=== PATIENT | male | born 1980 | race Caucasian/White ===

== ENCOUNTER 2019-07-07 07:11 | Day surgery (SDC) | payer OTHER ==
[~2019-07-07] VITALS: Ht 182.9 cm; Wt 105.2 kg
[~2019-07-07 07:11] MED LIST: LIDOCAINE 2% W/EPIN INJ 20ML **PRES FREE As Ordered ONE; LIDOCAINE 3.5 % 1ML OPHTH TOPICAL GEL OU ONE; TOBRADEX OPHTH OINT 3.5 GM As Ordered ONE
[2019-07-07] MEDS ORDERED: fentaNYL 100 MCG/2 ML INJECTION (J3010) As Ordered ONE (08:34)
[2019-07-07] MEDS ORDERED: ONDANSETRON 4MG/2ML VIAL (J2405) As Ordered ONE (08:34)
[2019-07-07] MEDS ORDERED: dexameTHASONE 4 MG/ML 1ML VIAL (J1100) As Ordered ONE (08:34)
[2019-07-07] MEDS ORDERED: propofoL 200 MG/20 ML VIAL As Ordered ONE (08:34)
[2019-07-07] MEDS ORDERED: LIDOCAINE 2% INJ 100 MG/5 ML SDV (FOR ANES.) As Ordered ONE (08:34)
[2019-07-07] MEDS ORDERED: MIDAZOLAM INJ 2 MG/2 ML VIAL (J2250) As Ordered ONE (08:35)
[2019-07-07] MEDS ORDERED: POVIDONE-IODINE 5% OPHTH PREP SOL 30ML As Ordered ONE (09:15)
[2019-07-07 10:00] VITALS: BP 143/66
--- NOTE | 2019-07-07 21:44 | RO ---
DATE OF PROCEDURE: 07/07/2019 PREPROCEDURE DIAGNOSIS: Nasal pterygium left eye. POSTPROCEDURE DIAGNOSIS: Nasal pterygium left eye. PROCEDURE: Excision of pterygium with amniotic membrane graft to the left eye. SURGEON: Qian Santos MD CUSTOMER PROGRAM SPECIALIST: ANESTHESIA: Topical sedation. DESCRIPTION OF PROCEDURE: The patient was prepped and draped in the usual fashion. Lid speculum was placed between the lids. The area was identified. 2% lidocaine with epinephrine was injected subconjunctivally in the area of pterygium. The pterygium was excised and reflected back up onto the limbus and then with the forceps grasped and a blade, removed from the cornea. The cornea was polished with the blade. Any bleeding was then controlled with [place] cautery. An amniotic membrane graft was cut to size. It was approximately 6.5 x 7 mm. It was placed onto the bare sclera, tucked underneath the conjunctiva and glued in place with Tisseel adhesive. The graft was in excellent position. The lid speculum was removed. TobraDex ointment was applied, and a patch was placed. The patient tolerated the procedure well and went to the recovery room in stable condition.
== END 2019-07-07 10:15 | disposition home or self-care (01) ==
LOC: M SDC 07:11
PROVIDERS: ATTEND Ophthalmology
DX: H11.002 Unspecified pterygium of left eye (principal); Z88.0 Allergy status to penicillin; Z91.030 Bee allergy status; F17.290 Nicotine dependence, other tobacco product, uncomplicated
CPT/HCPCS: 65426; 88304; C1762; J1100; J2250; J2405; J3010